=== PATIENT | male | born 1960 | race African-American/Black ===

== ENCOUNTER 2020-10-04 21:46 | Emergency (ER) | payer SELFPAY ==
[2020-10-04 22:01] VITALS: BP 164/98; PULSE 79; TEMP 98.1; BMI 33.9
[2020-10-04] MEDS ORDERED: NAPROXEN 500 MG TABLET PO ONE (22:21)
[2020-10-04] MEDS ORDERED: NAPROXEN 500 MG TABLET ONE (22:24)
[2020-10-06 16:09] LABS: SARS-CoV-2 NAA Not Detected (Not Detected)
== END 2020-10-04 22:31 | disposition home or self-care (01) ==
LOC: FER 21:46
DX: M79.671 Pain in right foot (principal); M79.672 Pain in left foot; Z59.0 Homelessness
CPT/HCPCS: 99283-25; C9803; U0003; U0005

== ENCOUNTER 2020-10-06 08:41 | Emergency (ER) | payer SELFPAY ==
[2020-10-06 09:05] VITALS: TEMP 97.9; BMI 35.6
[2020-10-06] MEDS ORDERED: ALBUTEROL SO4 2.5/IPRATROPIUM 0.5 INH SOL 3 ML VIAL.NEB. NEB SCH (09:45)
[2020-10-06 11:49] LABS: BASO % 0.5 % (0-2.0); EOS % 5.2 % (0-4.5); HEMOGLOBIN 11.8 GM/dL (11.7-16.9); LYMPH % 34.1 % (8-40); MCH 30.1 pg (25.7-33.7); MCHC 32.7 g/dl (32.0-35.9); MEAN PLT VOLUME 7.9 fl (7.5-11.1); MONO % 8.7 % (3.8-10.2); NEUT % 51.5 % (42.8-82.8); PLATELET COUNT 186 10^3/uL (134-434); RBC 3.91 M/mm3 (4.00-5.60); RDW 15.6 % (11.9-15.9); WHITE BLOOD COUNT 3.9 K/mm3 (4.0-10.0)
[2020-10-06 11:55] VITALS: BP 149/92; PULSE 60
[2020-10-06 12:10] LABS: CHLORIDE 107 mmol/L (98-107); SODIUM 141 mmol/L (136-145)
[2020-10-06 12:12] LABS: ALBUMIN 3.2 g/dl (3.4-5.0); ANION GAP 5 MMOL/L (8-16); CALCIUM 8.4 mg/dL (8.5-10.1); CO2 28 mmol/L (21-32)
[2020-10-06 12:13] LABS: BLOOD UREA NITROGEN 10.8 mg/dL (7-18); GLUCOSE,RANDOM 107 mg/dL (74-106)
[2020-10-06 12:15] LABS: SGOT/AST 19 U/L (15-37); SGPT/ALT 26 U/L (13-61)
[2020-10-06 12:16] LABS: CREATININE 0.8 mg/dL (0.55-1.3); PHOSPHOROUS 3.4 mg/dL (2.5-4.9)
[2020-10-06 12:17] LABS: BILIRUBIN,TOTAL 0.3 mg/dL (0.2-1); TOT PROT 7.1 g/dl (6.4-8.2)
[2020-10-06 12:18] LABS: ALK PHOS 73 U/L (45-117)
[2020-10-06 12:20] LABS: N-TERMINAL BNP 101.5 pg/ml (5-125)
== END 2020-10-06 15:35 | disposition home or self-care (01) ==
LOC: JER 08:41
PROC: 3E0F7GC Introduction of Other Therapeutic Substance into Respiratory Tract, Via Natural or Artificial Opening (ICD-10-PCS; principal; 2020-10-06)
DX: R60.9 Edema, unspecified (principal)
CPT/HCPCS: 36415; 71045-TC-FY; 80053; 82550; 82553; 83735; 83880; 84100; 84484; 85025; 93005; 93010; 99284-25; C9803; U0003; U0005

== ENCOUNTER 2020-10-07 08:26 | Emergency (ER) | payer SELFPAY ==
[2020-10-07 08:55] VITALS: BP 178/87; PULSE 68; TEMP 98.2; BMI 33.9
[2020-10-07] MEDS ORDERED: ACETAMINOPHEN 325 MG TABLET (FP) PO ONE (10:39)
[2020-10-07] MEDS ORDERED: guaiFENesin 200 MG/10 ML 10 ML UNIT-DOSE CUPS PO ONE (11:12)
[2020-10-07] MEDS ORDERED: guaiFENesin/CODEINE 5 ML UNIT-DOSE CUPS PO ONE (11:24)
[2020-10-07] MEDS ORDERED: ACETAMINOPHEN 325 MG TABLET (FP) ONE (11:24)
== END 2020-10-07 18:01 | disposition home or self-care (01) ==
LOC: JER 08:26
DX: Z59.0 Homelessness (principal)
CPT/HCPCS: 99283-25